=== PATIENT | female | born 1960 | race Caucasian/White ===

== ENCOUNTER 2017-05-24 16:25 | Emergency (ER) ==
[2017-05-24 16:36] VITALS: BP 157/90; TEMP 100.9; BMI 24.7
[2017-05-24] MEDS ORDERED: DUONEB NEB STA (16:50)
[2017-05-24 17:02] LABS: BASOPHILS % (AUTO) 0.3 % (0.0-3.0); EOSINOPHILS # (AUTO) 0.1 K/ul (0.0-0.7); EOSINOPHILS % (AUTO) 0.4 % (0.0-7.0); HEMATOCRIT 46.1 % (37.0-47.0); HEMOGLOBIN 16.3 g/dl (12.0-16.0); IMMATURE GRANULOCYTE % (AUTO) 0.4 % (0.0-5.0); LYMPHOCYTES # (AUTO) 2.1 K/uL (0.60-3.4); LYMPHOCYTES % (AUTO) 15.6 (10.0-50.0); MEAN CORPUSCULAR HGB CONC 35.4 (31.8-35.4); MEAN CORPUSCULAR VOLUME 90.4 fl (81.0-99.0); MONOCYTES # (AUTO) 0.9 K/uL (0.4-2.0); MONOCYTES % (AUTO) 6.4 (0-10); NEUTROPHILS # (AUTO) 10.4 K/ul (2.0-6.9); NEUTROPHILS % (AUTO) 76.9; PLATELET COUNT 308 10^3/uL (140-440); WHITE BLOOD COUNT 13.46 K/ul (4.6-10.2)
--- NOTE | 2017-05-24 17:27 | CT ---
EXAM: CT of the chest without contrast. HISTORY: Cough. PROCEDURE: Contiguous axial CT images of the chest without contrast with coronal and sagittal reform ats. FINDINGS: The heart is within normal limits in size. The thoracic aorta is within normal limits in d iameter. There are calcified hilar lymph nodes. There is minimal right middle lobe and right lower lo be atelectasis and/or pneumonia. There are degenerative changes in the spine. The adrenal glands and visualized portion of the liver are normal in appearance. Impression: Minimal right middle lobe and right lower lobe atelectasis and/or pneumonia.
[2017-05-24 17:28] LABS: ABG PH 7.481 (7.35-7.45)
[2017-05-24 17:29] LABS: ABG PCO2 32.3 mmHg (35-45)
[2017-05-24 17:30] LABS: ABG BASE EXCESS 1 (-2.0-2.0); ABG HCO3 24.1 (22.0-26.0); ABG TCO2 25 (22.0-28.0)
[2017-05-24 17:38] LABS: ALANINE AMINOTRANSFERASE 76 U/L (12-78); ALBUMIN 4.2 g/dL (3.4-5.0); ALKALINE PHOSPHATASE 118 U/L (42-98); ANION GAP 16.5; ASPARTATE AMINO TRANSFERASE 47 U/L (15-37); BILIRUBIN,TOTAL 0.49 mg/dL (0.00-1.20); BLOOD UREA NITROGEN 12 mg/dL (7-18); BUN/CREATININE RATIO 15.78; CALCIUM 9.8 mg/dL (8.2-10.2); CARBON DIOXIDE 24 mmol/L (21-32); CHLORIDE 104 mmol/L (98-107); CREATINE KINASE 155 U/L; CREATININE 0.76 mg/dL (0.60-1.30); GLUCOSE 117 mg/dL (70-110); POTASSIUM 3.5 mmol/L (3.5-5.10); SODIUM 141 mmol/L (136-145); TOTAL PROTEIN 7.7 g/dL (6.4-8.2)
[2017-05-24 17:39] LABS: CREATINE KINASE MB 0.7 ng/ml (0.0-3.6)
--- NOTE | 2017-05-24 18:10 | ED.PDOC ---
General ED Provider: Dr. GEE GOLD Chief Complaint: Respiratory Complaint Stated Complaint: cough, wheez, Time Seen by Physician: 16:40 Mode of Arrival: Walk-In Information Source: Patient Exam Limitations: No limitations Primary Care Provider: CARLA GAMBLE Nursing and Triage Documentation Reviewed and Agree: Yes Respiratory Complaint Exam - Respiratory Complaint/Exam Symptoms Are: Still present Timing: Intermittent Initial Severity: Mild Current Severity: Mild Location: Throat, Chest Character: Reports: Non-productive cough Aggravating: Reports: None Alleviating: Reports: None Associated Signs and Symptoms: Reports: URI, Nasal congestion, Decreased oral intake. Denies: Dyspnea, Fever, Chills, Chest pain, Pleuritic chest pain Related History: Reports: Similar episode History of Healthcare-Acquired Pneumonia: No Review of Systems - Review Of Systems Constitutional: Reports: Malaise, Weakness Eyes: Reports: No symptoms Ears, Nose, Mouth, Throat: Reports: No symptoms Respiratory: Reports: Cough Cardiac: Reports: No symptoms GI: Reports: No symptoms : Reports: No symptoms Musculoskeletal: Reports: No symptoms Skin: Reports: No symptoms Neurological: Reports: No symptoms Endocrine: Reports: No symptoms Hematologic/Lymphatic: Reports: No symptoms All Other Systems: Reviewed and Negative Past Medical History - Past Medical History Previously Healthy: Yes Endocrine: Reports: None Cardiovascular: Reports: None Respiratory: Reports: COPD Hematological: Reports: None Gastrointestinal: Reports: None Genitourinary: Reports: None Neuro/Psych: Reports: None Musculoskeletal: Reports: None Cancer: Reports: None Last Menstrual Period: NONE - Surgical History General Surgical History: Reports: None - Family History Family History: Reports: None - Social History Smoking Status: Current every day smoker, Light tobacco smoker Hx Substance Use: No Alcohol Screening: None Physical Exam - Physical Exam Appearance: Ill-appearing Ill-appearing: Mild Pain Distress: Mild Eyes: RAHAT, EOMI, Conjunctiva clear ENT: Ears normal, Nose normal, Oropharynx normal Respiratory: Rhonchi, Wheezes Cardiovascular: RRR, Pulses normal, No rub, No murmur GI/: Soft, Nontender, No masses, Bowel sounds normal, No Organomegaly Musculoskeletal: Normal strength, ROM intact, No edema, No calf tenderness Skin: Warm, Dry, Normal color Neurological: Sensation intact, Motor intact, Reflexes intact, Cranial nerves intact, Alert, Oriented Psychiatric: Affect appropriate, Mood appropriate Interpretation - Radiology Interpretation Radiology Interpretation By: Radiologist (pneumonia) Re-Evaluation - Re-Evaluation Time of Re-Evaluation: 18:00 Status: Improved Vital Signs Stable: Yes Pain Level: 0 Appearance: NAD Lungs: Clear Skin: Warm and Dry Neuro: Alert and Oriented X3 CV: RRR - Re-Evaluation Time of Re-Evaluation: 18:45 (seen pt with nurse informed her about pneumonia and lack of PE) Status: Improved Vital Signs Stable: Yes Pain Level: 0 Appearance: NAD Skin: Warm and Dry Neuro: Alert and Oriented X3 CV: RRR Critical Care Note - Critical Care Note Total Time (mins): 0 Course - Course Hematology/Chemistry: 05/24/17 16:59 05/24/17 16:59 Orders, Labs, Meds: Lab Review 05/24/17 05/24/17 05/24/17 16:50 16:59 16:59 WBC 13.46 H RBC 5.10 Hgb 16.3 H Hct 46.1 MCV 90.4 MCH 32.0 H MCHC 35.4 RDW Coeff of [place] 13.1 Plt Count 308 Immature Gran % (Auto) 0.4 Neut % (Auto) 76.9 Lymph % (Auto) 15.6 [place] % (Auto) 6.4 Eos % (Auto) 0.4 Baso % (Auto) 0.3 Immature Gran # (Auto) 0.1 Neut # 10.4 H Lymph # 2.1 [place] # 0.9 Eos # 0.1 Baso # 0.0 D-Dimer (Manual) Puncture Site Lrad O2 Saturation 90.0 L ABG pH 7.481 H ABG pCO2 32.3 L ABG pO2 54.0 L* ABG HCO3 24.1 ABG Total CO2 25 ABG Base Excess 1 Glenn Test + FiO2 % 21.0 Sodium 141 Potassium 3.5 Chloride 104 Carbon Dioxide 24 Anion Gap 16.5 BUN 12 Creatinine 0.76 Estimated GFR (MDRD) 78.00 BUN/Creatinine Ratio 15.78 Glucose 117 H Calcium 9.8 Total Bilirubin 0.49 AST 47 H ALT 76 Alkaline Phosphatase 118 H Total Creatine Kinase 155 CK-MB (CK-2) 0.7 CK-MB (CK-2) % 0.50983 Troponin I < 0.0100 Total Protein 7.7 Albumin 4.2 Globulin 3.5 Albumin/Globulin Ratio 1.20 05/24/17 16:59 WBC RBC Hgb Hct MCV MCH MCHC RDW Coeff of [place] Plt Count Immature Gran % (Auto) Neut % (Auto) Lymph % (Auto) [place] % (Auto) Eos % (Auto) Baso % (Auto) Immature Gran # (Auto) Neut # Lymph # [place] # Eos # Baso # D-Dimer (Manual) 404.04 Puncture Site O2 Saturation ABG pH ABG pCO2 ABG pO2 ABG HCO3 ABG Total CO2 ABG Base Excess Glenn Test FiO2 % Sodium Potassium Chloride Carbon Dioxide Anion Gap BUN Creatinine Estimated GFR (MDRD) BUN/Creatinine Ratio Glucose Calcium Total Bilirubin AST ALT Alkaline Phosphatase Total Creatine Kinase CK-MB (CK-2) CK-MB (CK-2) % Troponin I Total Protein Albumin Globulin Albumin/Globulin Ratio Orders Category Date Time Status ABG DRAW REQUEST Stat CARDIO 05/24/17 16:50 Completed EKG-(ED ONLY) Stat CARDIO 05/24/17 16:50 Completed NEBULIZER TREATMENT Stat CARDIO 05/24/17 16:50 Completed NPO REMINDER: IMAGING ONCE CARE 05/24/17 17:48 Completed ABG Stat LAB 05/24/17 16:50 Completed BLOOD CULTURE Stat LAB 05/24/17 17:48 Received CBC W/ AUTO DIFF Stat LAB 05/24/17 16:59 Completed COMPREHENSIVE METABOLIC PANEL Stat LAB 05/24/17 16:59 Completed CREATINE KINASE Stat LAB 05/24/17 16:59 Completed D-DIMER Stat LAB 05/24/17 16:59 Completed TROPONIN I Stat LAB 05/24/17 16:59 Completed Acetaminophen with Codeine [Tylenol #3 Tab] MEDS 05/24/17 18:44 Discontinued 1 tab PO ONCE STA Ceftriaxone Sodium [Rocephin] MEDS 05/24/17 18:58 Discontinued 1 gm .ROUTE .STK-MED ONE Ceftriaxone Sodium [Rocephin] 1 gm MEDS 05/24/17 18:54 Discontinued 0.9 % Sodium Chloride [Sodium Chloride] 50 ml IV ONCE Ipratropium/Albuterol Neb [Duoneb] MEDS 05/24/17 16:50 Discontinued [address] vial NEB ONCE STA CT CHEST PE PROTOCOL Stat RADS 05/24/17 17:[address] CHEST W/O CONTRAST Stat RADS 05/24/17 16:49 Completed Medications Discontinued Medications Generic Name Dose Route Start Last Admin Trade Name Freq PRN Reason Stop Dose Admin Acetaminophen/Codeine Phosphate 1 tab 05/24/17 18:44 05/24/17 18:49 Tylenol #3 Tab PO 05/24/17 18:45 1 tab ONCE STA Administration Albuterol/Ipratropium 1 vial 05/24/17 16:50 05/24/17 17:00 Duoneb NEB 05/24/17 16:51 1 vial ONCE STA Administration Ceftriaxone Sodium 1 gm/ 50 mls @ 75 mls/hr 05/24/17 18:54 05/24/17 19:05 Sodium Chloride IV 05/24/17 19:33 75 mls/hr ONCE STA Administration Vital Signs: Temp Pulse Resp BP Pulse Ox 05/24/17 19:38 93 L 05/24/17 18:43 100.9 F H 05/24/17 16:26 100.9 F H 100 H 20 157/90 H 93 L Departure - Departure Time of Disposition: 19:00 Disposition: TSF SHORT-TRM HOSP Discharge Problem: Pneumonia Qualifiers: Pneumonia type: due to unspecified organism Laterality: right Lung location: lower lobe of lung Qualified Code(s): J18.1 - Lobar pneumonia, unspecified organism Instructions: Pneumonitis (ED) Condition: Good Pt referred to PMD for follow-up: Yes Additional Instructions: Please call your Family Physician as soon as possible to schedule a follow-up appointment. Allergies/Adverse Reactions: Allergies No Known Allergies Allergy (Verified 05/24/17 16:31) Home Medications: Ambulatory Orders Alprazolam [Xanax] 0.5 mg PO PRN PRN 05/24/17 Lorazepam [Ativan] 1 mg PO DAILY 05/24/17 Disposition Discussed With: Patient
--- NOTE | 2017-05-24 18:41 | CT ---
EXAM: CT pulmonary angiogram. HISTORY: Shortness of breath. Evaluate for pulmonary embolism. PROCEDURE: After the intravenous injection of contrast a CT pulmonary angiogram was performed with c ontiguous axial CT images of the chest and multiplanar and 3-D reformats. FINDINGS: There is normal enhancement of the pulmonary arteries with no evidence of pulmonary embolis m. The heart is within normal limits in size. The thoracic aorta is within normal limits in diamete r. There is a pretracheal lymph node measuring up to 0.8 cm in short axis. There is an enlarged right hilar lymph node measuring up to 1.1 cm in short axis. There are secretions in the right lower lobe bronchi. There is minimal right middle lobe and right lower lobe atelectasis and/or pneumonia. Ther e are degenerative changes in the spine. The adrenal glands and visualized portion of the liver are normal in appearance. There is a 1.5 cm complex lesion in the left kidney. Impression: No evidence of pulmonary embolism. Minimal right middle lobe and right lower lobe atelectasis and/or pneumonia. Secretions in the right lower lobe bronchi. Right hilar lymphadenopathy as described. Recommend follow-up CT in 3 months to confirm stability. 1.5 cm complex lesion in the left kidney. Recommend outpatient ultrasound for further evaluation.
[2017-05-24] MEDS ORDERED: TYLENOL #3 TAB PO STA (18:44)
[2017-05-24] MEDS ORDERED: ROCEPHIN 1 GM in SODIUM CHLORIDE 50 ML IV STA (18:54)
[2017-05-24] MEDS ORDERED: ROCEPHIN ONE (18:58)
== END 2017-05-24 20:15 | disposition short-term general hospital (02) ==
LOC: ED 16:25
DX: J18.1 Lobar pneumonia, unspecified organism (principal); F17.210 Nicotine dependence, cigarettes, uncomplicated
CPT/HCPCS: 36415; 80053; 82550; 82553; 82803; 84484; 85025; 85379; 87040; 93005; 93010; 94640; 96365; 99285